=== PATIENT | male | born 1980 | race Caucasian/White ===

== ENCOUNTER 2018-01-09 14:36 | Emergency (ER) | payer OTHER ==
[~2018-01-09] VITALS: Ht 180.3 cm; Wt 118.2 kg
[~2018-01-09 14:36] MED LIST: NO HOME MEDS
[2018-01-09] MEDS ORDERED: PROPARACAINE HCL 0.5% 15 ML OPHTHALMIC SOLUTION OU ONE (14:45)
[2018-01-09] MEDS ORDERED: FLUORESCEIN SODIUM 1 MG STRIP OU ONE (14:45)
[2018-01-09] MEDS ORDERED: ERYTHROMYCIN 0.5% 3.5 GM TUBE OPHTHALMIC OINTMENT OU ONE (15:15)
[2018-01-09 16:08] VITALS: BP 129/89
== END 2018-01-09 16:31 | disposition home or self-care (01) ==
LOC: EMS 14:37
DX: H10.9 Unspecified conjunctivitis (principal); F17.210 Nicotine dependence, cigarettes, uncomplicated; Z98.890 Other specified postprocedural states
CPT/HCPCS: 99406